=== PATIENT | female | born 1940 | race Caucasian/White ===

== ENCOUNTER 2017-02-28 13:45 | Inpatient (IN) | payer MEDICARE ==
[~2017-02-28] VITALS: Ht 167.6 cm; Wt 91.4 kg
--- NOTE | ~2017-02-28 | EKG ---
PATIENT: AMMON UNGER UNIT #: [id number] Ventricular Rate: 112 BPM Atrial Rate: 112 BPM P-R Interval: 196 ms QRS Duration: 68 ms Q-T Interval: 322 ms QTC Calculation(Bezet): 439 ms P Pitts: 22 degrees Calculated R Pitts: -15 degrees Calculated T Pitts: -11 degrees Diagnosis Line: Sinus tachycardia Diagnosis Line: Minimal voltage criteria for LVH, may be normal Diagnosis Line: variant Diagnosis Line: Nonspecific T wave abnormality Diagnosis Line: Abnormal ECG Diagnosis Line: No previous ECGs available Diagnosis Line: Confirmed by PEDRO OSCAR MD ([id number]) on Diagnosis Line: 02/28/2017 11:17:37 PM INTERPRETING MD: DAYNE ACEVEDO
--- NOTE | ~2017-02-28 | HP ---
Unit #: [id number] #: [id number] Patient: AMMON UNGER [id number] [facility] [address] [place], [place] [address] [id number] MR#: [id number] NAME: AMMON UNGER. ROOM: 10323 Age: 76 Sex: F Admission Date: 02/28/2017 : 1940 Attending Physician: Naa Graff M.D. Primary Care Physician: Dominguez Acosta M.D. HISTORY AND PHYSICAL CHIEF COMPLAINT Dehydration, nausea, vomiting, UTI. HISTORY OF PRESENT ILLNESS The patient is a 76-year-old female with a past medical history of atrial flutter, cerebrovascular accident, hypertension, hyperlipidemia, urinary incontinence who presented to the emergency department for evaluation of the above. The patient states that she has not been feeling well since 02/24/2017. She has been feeling increasingly generally weak. She has had nausea and vomiting. She reports lower abdominal pain that she describes as "crampy." She denies any urinary symptoms. She is continent at baseline. She states that the symptoms are similarly to when she has had a urinary tract infection in the past. Of note, the patient states that she has required treatment with Invanz in the past due to multidrug resistance urinary tract infection. The patient also complains of chest pain. She states that it has been going on for several weeks. It is in the mid chest. It is intermittent in nature. She states that she had a stress test more than five years ago. She has never had a cardiac catheterization. In the emergency department initial pulse and blood pressure was 73 and 128/87 respectively. Temperature is 98.7. Urinalysis shows findings concerning for urinary tract infection. EKG shows what appears to be ST depression in leads V4 and 5. I do not see an old EKG for comparison. Initial cardiac enzymes are negative. She was given 500 mL of normal saline in the emergency department, as well as 4 mg of Zofran, Invanz 40 mEq of potassium, aspirin in the emergency department. She is being admitted to [facility] for evaluation and further treatment. PAST MEDICAL HISTORY 1. Admission to [facility] in 03/2016 for what sounds like multidrug resistant urinary tract infection and sepsis. She was discharged home with a PICC line on Invanz (no records). 2. 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 3. Hypertension. 4. Hyperlipidemia. 5. Cerebrovascular accident with no residual deficits. 6. Urinary incontinence. Unit #: [id number] #: [id number] Patient: AMMON UNGER PAST SURGICAL HISTORY 1. Hysterectomy. 2. Cholecystectomy. 3. Bladder surgery. SOCIAL HISTORY The patient lives with her . There is no tobacco or alcohol use. She has a cane. FAMILY HISTORY Notable for her mother having cancer. Her dad of a myocardial infarction at the age of 62. ALLERGIES Penicillin, erythromycin. HOME MEDICATIONS This is not currently a med rec on the chart. Home medications will need to be reviewed and verified. REVIEW OF SYSTEMS A complete review of systems is negative except as indicated in the HPI. PHYSICAL EXAMINATION VITAL SIGNS: Temperature is 98.5, pulse 73, respirations 18, blood pressure 128/87, oxygen saturation 100% on room air. GENERAL: The patient is a female who is awake and alert in no acute distress. HEENT: Head is atraumatic. Mucous membranes are dry. NECK: Supple. Trachea is midline. CARDIOVASCULAR: Regular rate and rhythm. LUNGS: Clear to auscultation bilaterally with no increased work of breathing. ABDOMEN: Soft. She is mildly tender to palpation in the suprapubic area. Bowel sounds are present in all four quadrants. EXTREMITIES: Nontender with no pedal edema. NEUROLOGIC: The patient is awake and alert. She follows commands. PSYCH: The patient is somewhat anxious. She is cooperative. SKIN: Skin of examined areas is warm and dry. DIAGNOSTIC STUDIES CARDIOLOGY STUDIES: EKG shows sinus tachycardia with a rate of [address] depression in leads V4 and V5. There is no old EKG for comparison. IMAGING STUDIES: Chest x-ray shows no acute abnormality. LABORATORY STUDIES: Lipase is 20. Comprehensive metabolic panel notable for potassium of 2.8, chloride is 98. Urinalysis notable for 3+ leukocyte esterase, 2+ protein, 1+ ketones, 1+ blood, 10-25 red blood cells, enumerable white blood cells, 4+ bacteria. INR is 1.1. Complete blood count is essentially normal. Troponin was less than 0.05. ASSESSMENT The patient is a 76-year-old female with: 1. General weakness. 2. Urinary tract infection. There are no urine cultures in [facility] for review. The patient has a history of possibly ESBL urinary tract Unit #: [id number] #: [id number] Patient: AMMON UNGER infection. She has required treatment with Invanz in the past. 3. Chest pain. The patient states that she had a stress test more than five years ago. She has never had a cardiac catheterization. EKG today shows nonspecific ST changes. Initial cardiac enzymes are negative. She received aspirin in the emergency department. 4. History of atrial flutter not on chronic anticoagulation. 5. History of cerebrovascular accident. 6. Hypokalemia with a potassium of 2.8. The patient received 40 mEq of potassium in the emergency department. 7. Hypertension. 8. Hyperlipidemia. 9. Urinary incontinence. PLAN 1. Admit for observation to an intermediate level. 2. Advance to clear liquids as tolerated. 3. NPO after midnight for possible stress test. 4. Bedrest. 5. Fall precautions. 6. PT and OT to evaluate and treat. 7. Blood cultures x2. 8. Urine culture and sensitivity on urine in the lab. 9. Invanz with pharmacy to dose. 10. Get records from [facility] including urine culture. 11. Fasting lipid panel. 12. Serial cardiac enzymes. 13. Consult Dr. Morales regarding chest pain. 14. Check magnesium level. 15. Normal saline at 75 mL an hour. 16. P.r.n. Zofran. 17. Repeat labs in the morning including magnesium. 18. SCD for DVT prophylaxis. 19. Additional workup and consultants based on above. Dictated by Naa Graff M.D. MEAGAN/sherrill TD: 02/28/2017 19:01 JOB #: [id number] HISTORY AND PHYSICAL Page 1 of 1 X Naa Graff MD X HISTORY AND PHYSICAL
--- NOTE | ~2017-02-28 | CO ---
Unit #: [id number] #: [id number] Patient: AMMON UNGER [id number] [address] [address] [id number] I MR#: [id number] NAME: AMMON UNGER. ROOM: 338 Age: 76 Sex: F Admission Date: 02/28/2017 : 1940 Attending Physician: Jr Pringle M.D. Primary Care Physician: Dominguez Acosta M.D. Consultation Date: 03/01/2017 CONSULTATION REPORT REASON FOR CONSULT Chest pain. HISTORY OF PRESENTING ILLNESS This is a 76-year-old female with a prior history of hypertension, hyperlipidemia, GERD, irregular heart rate in the past with palpitations (details unavailable at this time), CVA, vertigo, and ESBL UTI in 2015. In addition, she had a negative Lexiscan stress test in 2010 and is a reformed smoker. She presented to the ER with weakness, nausea and vomiting, ongoing for several days. She denies prior recent illness with fever or chills. She was found to be dehydrated and to have a UTI. In addition, she reported intermittent mid sternal chest pain off and on for the last three months. They are described as sharp pain in her mid sternal area lasting days. The pains occur at rest. Accompanying symptoms include shortness of air and anxiety. She denies any radiating pain or diaphoresis with that episode. An EKG in the ER shows sinus tach with nonspecific T wave abnormality. Her troponin was negative x3. PAST MEDICAL HISTORY 1. Hypertension. 2. Hyperlipidemia. 3. GERD. 4. Irregular heart rate in the past (details unavailable). 5. CVA. 6. Vertigo. 7. ESBL UTI in 2015. 8. Negative Lexiscan stress test in 2010. 9. Reformed smoker. 10. Degenerative disc disease. 11. Osteoarthritis. PAST SURGICAL HISTORY 1. Hysterectomy. 2. Cholecystectomy. 3. Bladder surgery. SOCIAL HISTORY The patient lives with her . She denies tobacco or alcohol use. She denies illicit drug use. FAMILY HISTORY Her father had an MA in his 60s. Unit #: [id number] #: [id number] Patient: AMMON UNGER ALLERGIES She is allergic to penicillin, sulfa and erythromycin. HOME MEDICATIONS 1. Hydrocodone/acetaminophen 10/325 mg, one tab p.o. twice a day as needed for pain. 2. Albuterol inhaler every four hours as needed for wheezing. 3. Albuterol MDI two puffs every four hours as needed for wheezing. 4. Tenormin 12.5 mg p.o. daily. 5. Baclofen 10 mg p.o. twice a day. 6. Donepezil 10 mg p.o. daily. 7. Furosemide 40 mg p.o. daily. 8. Hydrochlorothiazide 25 mg p.o. twice a day. 9. Imipramine 100 mg p.o. at bedtime. 10. Namenda 5 mg p.o. twice a day. 11. Multivitamins, one tab p.o. once a day. 12. Protonix 40 mg p.o. daily. 13. Meclizine 12.5 mg p.o. three times a day as needed for dizziness. 14. Ativan 0.5 mg p.o. twice a day as needed for anxiety. 15. Carafate 1 g p.o. four times a day. REVIEW OF SYSTEMS Ten point review of systems was conducted and is otherwise negative except for what was stated in HPI. PHYSICAL EXAMINATION VITAL SIGNS: Temp 97.8, heart rate 89, respiratory rate 18, blood pressure 135/91. GENERAL: This is a 76-year-old female resting in bed in no acute distress. HEENT: Head is atraumatic and normocephalic. Pupils are equal and reactive. Mucous membranes are moist. NECK: Supple. Trachea midline. Negative for JVD. LUNGS: Clear, diminished in bases. Nonlabored respirations. CARDIOVASCULAR: S1, S2. Regular rate and rhythm. No significant murmurs, rubs or gallops auscultated. ABDOMEN: Soft, nontender, nondistended. EXTREMITIES: Pulses are palpable. No pedal edema. No cyanosis. NEUROLOGIC: Alert and oriented x3. Follows all commands without difficulty. Moves all extremities equally. DIAGNOSTIC STUDIES LABORATORY: Sodium 135, potassium 2.7, chloride 98, BUN 21, creatinine 1, glucose 101, magnesium 1.6, hemoglobin 13, hematocrit 39.6, white blood cell count 8.6, platelet count 223. Point of care troponin less than 0.05 and repeat troponins less than 0.03 x2. Lipid profile - cholesterol 255, triglyceride 123, LDL 162, HDL 68. AST 22, ALT 19, alkaline phos. 69. IMAGING: Chest x-ray showed left lower lobe atelectasis. CARDIOVASCULAR: EKG showed sinus rhythm with nonspecific T wave abnormalities and a ventricular rate of 104. ASSESSMENT 1. Chest pain, atypical. Unit #: [id number] #: [id number] Patient: AMMON UNGER 2. Urinary tract infection with a history of ESBL UTI. 3. History of irregular heart rate. 4. Hypokalemia. 5. Hypertension. 6. Hyperlipidemia. PLAN 1. Lexiscan stress test. 2. Add Lipitor. 3. Add aspirin. 4. Replace potassium. 5. Check BMP in a.m. 6. Check echocardiogram. Thank you for asking us to see this patient. We appreciate the consult. Dictated by... Daisy England APRN for Scout Sinclair M.D. ALDO/blayne TD: 03/02/2017 08:04 JOB #: [id number] CONSULTATION REPORT Page 1 of 1 X X CONSULTATION REPORT
--- NOTE | ~2017-02-28 | CR72 ---
[facility] A Service of [facility] RADIOLOGY TEXT RESULTS PATIENT: AMMON UNGER LOCATION: [facility] 338- : 40 UNIT #: [id number] AGE: [address]: Naa Graff MD SEX: F ORDER DR: [id number] [facility] [address] [facility]. [place], [place] [address] [id number] I MR#: [id number] Acc #: [id number] NAME: AMMON UNGER : 1940 SEX: F STUDY DATE/TIME: 02/28/2017 14:50 UNIT: [address] ROOM: [facility] STUDY DESCRIPTION: CR Chest Single View Portable Attending Physician: Naa Graff M.D. Ordering Physician: Abraham Sanchez D.O. Primary Care Physician: Dominguez Acosta M.D. MEDICAL IMAGING REPORT This report is preliminary unless electronic signature is present EXAM Portable chest HISTORY Dehydration, nausea, vomiting, weakness onset today. COMPARISON None. FINDINGS Portable view of the chest demonstrates lingular and left lower lobe atelectasis. Air-filled middle mediastinal density compatible with hiatal hernia. No dense airspace disease or consolidation. No effusions. Mild aortic atherosclerotic changes. No pneumothorax. Dictated by... Juventino Acosta M.D. THIS IS AN ELECTRONICALLY VERIFIED REPORT Juventino Acosta M.D. at 03/01/2017 7:15 AM GIOVANNA/germaine TD: 03/01/2017 00:31 JOB #: [id number] MEDICAL IMAGING REPORT Page 1 of 1 COPY
--- NOTE | ~2017-02-28 | TH ---
Unit #: [id number] #: [id number] Patient: AMMON UNGER [id number] [address] [address] [id number] MR#: [id number] NAME: AMMON UNGER : 1940 SEX: F STUDY DATE/TIME: 03/01/2017 UNIT: [id number] U ROOM: [address] [place] [address] DESCRIPTION: Nuclear stress Attending Physician: Jr Pringle M.D. Primary Care Physician: Dominguez Acosta M.D. CARDIOLOGY REPORT INDICATION Chest discomfort. SUMMARY The patient underwent nuclear stress test. Only rest images were able to be obtained. Patient was unable to complete the whole study due to nausea and claustrophobia. Patient received a resting dose of 9.2 mCi. There is no gated imaging available. On rest only images patient does not appear to have any infarction present. CONCLUSION 1. No infarction available as uniform uptake seen. Though this information is limited as gating films are not available. 2. Inconclusive test. Would recommend completion of the study, stress portion. 3. 1. Dictated by... Kalani Mohamud M.D. [place]/sherrill TD: 03/02/2017 05:57 JOB #: [id number] Unit #: [id number] #: [id number] Patient: AMMON UNGER CARDIOLOGY REPORT Page 1 of 1 X KALANI MOHAMUD MD CARDIOLOGY REPORT
[2017-02-28 15:42] LABS: POC - CKMB 1.2 ng/mL (0.0-7.9); POC - TROPONIN <0.05 ng/mL (<=0.05)
[2017-02-28 16:00] LABS: BASOPHIL% 0.4 % (0-2.5); EOSINOPHIL# 0.2 X10e3 (0-0.7); EOSINOPHIL% 2.2 % (0.0-7.0); HEMATOCRIT 44.4 % (35.0-45.0); HEMOGLOBIN 14.7 gm/dL (12.0-16.0); LYMPHOCYTE# 2.7 X10e3 (1.0-3.5); LYMPHOCYTE% 26.4 % (17.0-45.0); MEAN CELL VOLUME 83.9 FL (83-96); MEAN CORPUSCULAR HEMOGLOBIN 27.7 PG (28-34); MEAN CORPUSCULAR HGB CONC 33.1 g/dL (30-36); MEAN PLATELET VOLUME 9.5 FL (6.5-11.5); MONOCYTE# 0.8 X10e3 (0-1.0); MONOCYTE% 7.4 % (3.0-12.0); NEUTROPHIL# 6.5 X10e3 (1.5-7.1); NEUTROPHIL% 63.6 % (40-75); PLATELET COUNT 292 X10e3 (140-420); RED BLOOD COUNT 5.29 X10e (3.90-5.30); RED CELL DISTRIBUTION WIDTH 14.7 % (11.0-15.5); WHITE BLOOD COUNT 10.3 X10e3 (4.0-10.5)
[2017-02-28 16:01] LABS: DIFF IND NO
[2017-02-28 16:12] LABS: URINE SOURCE CLEAN CATCH
[2017-02-28 16:13] LABS: INR 1.1; PARTIAL THROMBOPLASTIN TIME 25.2 SECONDS (23.5-31.3); PROTHROMBIN TIME (PATIENT) 11.4 SECONDS (10.0-11.7)
[2017-02-28 16:17] LABS: URINE APPEARANCE TURBID; URINE BLOOD 1+ (NEG); URINE COLOR DK YELLOW; URINE GLUCOSE NEG (NEG); URINE KETONE 1+ (NEG); URINE LEUKOCYTE ESTERASE 3+ (NEG); URINE NITRATE NEG (NEG); URINE PROTEIN 2+ (NEG); URINE SPECIFIC GRAVITY 1.027 (1.003-1.035)
[2017-02-28 16:19] LABS: CULTURE INDICATED? YES; U HYALINE CASTS AUWI 0-2 /[LPF]; URINE BACTERIA AUWI 4+ (NEGATIVE); URINE SQUAMOUS EPITHELIAL CELL OCC /[HPF]; UWBCS1 AUWI INNUM (0-5)
[2017-02-28 16:57] LABS: URINE BILIRUBIN NEG (NEG)
[2017-02-28 17:25] LABS: ALBUMIN SERUM 4.3 g/dL (3.5-5.0); BILIRUBIN, DIRECT 0.2 mg/dL (0.0-0.2); BILIRUBIN,INDIRECT 1.2 mg/dL (0.0-0.9); BILIRUBIN,TOTAL 1.4 mg/dL (0.2-2.0); CALCIUM SERUM 10.2 mg/dL (8.4-10.2); GLOM FILT RATE Estimated 54.7 mL/min (>60); PROTEIN TOTAL SERUM 7.9 g/dL (6.0-8.3)
[2017-02-28 17:28] LABS: POTASSIUM 2.8 mmol/L (3.5-5.1)
[2017-02-28] MEDS ORDERED: ALBUTEROL17 GM INH (17:43)
[2017-02-28] MEDS ORDERED: HYDROCODON-ACE1 EAC5 PO (17:43)
[2017-02-28] MEDS ORDERED: ALBUTEROL2.5 MG/3 M INH (17:43)
[2017-02-28] MEDS ORDERED: TENORMIN25 M1 PO (17:44)
[2017-02-28] MEDS ORDERED: DONEPEZIL HCL10 MG PO (17:46)
[2017-02-28] MEDS ORDERED: LIORESAL10 MG PO (17:46)
[2017-02-28] MEDS ORDERED: FUROSEMIDE40 MG PO (17:47)
[2017-02-28] MEDS ORDERED: HYDROCHLOROTHIA25 MG PO (17:48)
[2017-02-28] MEDS ORDERED: NAMENDA5 MG PO (17:49)
[2017-02-28] MEDS ORDERED: IMIPRAMINE HCL50 M1 PO (17:49)
[2017-02-28] MEDS ORDERED: MULTIVITAMINS1 EAC3 PO (17:49)
[2017-02-28] MEDS ORDERED: PROTONIX (17:51)
[2017-02-28 19:10] LABS: MAGNESIUM 1.8 mg/dL (1.6-3.0)
[2017-02-28 19:18] LABS: POC - CKMB <1.0 ng/mL (0.0-7.9); POC - TROPONIN <0.05 ng/mL (<=0.05)
[2017-02-28 23:35] LABS: %MB 1.7 % (0.0-4.0); MB 1.1 ng/ml
[2017-03-01] MEDS ORDERED: MECLIZINE HCL12.5 M2 PO (00:49)
[2017-03-01] MEDS ORDERED: ATIVAN0.5 MG PO (00:50)
[2017-03-01] MEDS ORDERED: CARAFATE1 GM PO (01:09)
[2017-03-01 05:26] LABS: BASOPHIL% 0.5 % (0-2.5); EOSINOPHIL# 0.7 X10e3 (0-0.7); HEMATOCRIT 39.6 % (35.0-45.0); LYMPHOCYTE# 2.1 X10e3 (1.0-3.5); LYMPHOCYTE% 24.6 % (17.0-45.0); MEAN CELL VOLUME 84.3 FL (83-96); MEAN CORPUSCULAR HEMOGLOBIN 27.6 PG (28-34); MEAN CORPUSCULAR HGB CONC 32.8 g/dL (30-36); MEAN PLATELET VOLUME 8.4 FL (6.5-11.5); MONOCYTE# 0.8 X10e3 (0-1.0); MONOCYTE% 8.9 % (3.0-12.0); PLATELET COUNT 223 X10e3 (140-420); RED BLOOD COUNT 4.69 X10e (3.90-5.30); RED CELL DISTRIBUTION WIDTH 14.8 % (11.0-15.5); WHITE BLOOD COUNT 8.6 X10e3 (4.0-10.5)
[2017-03-01 05:35] LABS: DIFF IND NO
[2017-03-01 05:54] LABS: CK TOTAL 55 IU/L (26-140)
[2017-03-01 06:15] LABS: ALBUMIN SERUM 3.9 g/dL (3.5-5.0); BILIRUBIN,TOTAL 0.9 mg/dL (0.2-2.0); CALCIUM SERUM 9.8 mg/dL (8.4-10.2); GLOM FILT RATE Estimated 54.7 mL/min (>60); MAGNESIUM 1.6 mg/dL (1.6-3.0)
[2017-03-01 06:20] LABS: POTASSIUM 2.7 mmol/L (3.5-5.1)
[2017-03-02 12:55] LABS: BUN/CREATININE RATIO 13.75; CALCIUM SERUM 9.3 mg/dL (8.4-10.2); CREATININE SERUM 0.8 mg/dL (0.6-1.4); GLOM FILT RATE Estimated 71.7 mL/min (>60); POTASSIUM 3.5 mmol/L (3.5-5.1)
[2017-03-02 16:54] LABS: URINE APPEARANCE CLEAR; URINE BILIRUBIN NEG (NEG); URINE BLOOD NEG (NEG); URINE COLOR YELLOW; URINE GLUCOSE NEG (NEG); URINE KETONE NEG (NEG); URINE LEUKOCYTE ESTERASE 2+ (NEG); URINE NITRATE NEG (NEG); URINE PROTEIN NEG (NEG); URINE SPECIFIC GRAVITY 1.017 (1.003-1.035); URINE UROBILINOGEN 0.2 MG/DL (NEG)
[2017-03-02 16:59] LABS: URBCS1 AUWI 0-2 /[HPF] (0-2); URINE BACTERIA AUWI NEG (NEGATIVE); URINE SQUAMOUS EPITHELIAL CELL OCC /[HPF]
[2017-03-03 05:51] LABS: BUN/CREATININE RATIO 15.71; CALCIUM SERUM 9.1 mg/dL (8.4-10.2); CREATININE SERUM 0.7 mg/dL (0.6-1.4); GLOM FILT RATE Estimated 84.2 mL/min (>60); MAGNESIUM 1.8 mg/dL (1.6-3.0); POTASSIUM 3.5 mmol/L (3.5-5.1)
[2017-03-03 19:51] LABS: BUN/CREATININE RATIO 13.33; CALCIUM SERUM 9.1 mg/dL (8.4-10.2); CREATININE SERUM 0.9 mg/dL (0.6-1.4); GLOM FILT RATE Estimated 62.2 mL/min (>60); POTASSIUM 4.2 mmol/L (3.5-5.1)
[2017-03-04 06:03] LABS: CALCIUM SERUM 9.4 mg/dL (8.4-10.2); CREATININE SERUM 0.8 mg/dL (0.6-1.4); GLOM FILT RATE Estimated 71.7 mL/min (>60); MAGNESIUM 1.8 mg/dL (1.6-3.0); POTASSIUM 4.1 mmol/L (3.5-5.1)
[2017-03-04] MEDS ORDERED: ASPIRIN81 M2 PO (14:56)
[2017-03-04] MEDS ORDERED: LIPITOR40 MG PO (14:57)
[2017-03-04] MEDS ORDERED: GABAPENTIN300 MG PO (14:57)
[2017-03-04] MEDS ORDERED: ALDACTONE25 MG PO (14:58)
== END 2017-03-04 16:12 | disposition home health service (06) | DRG 641 ==
LOC: CED 13:45 → CEDOF 18:10 → C3A PCU 18:10 → CED 18:10 → C3A PCU 18:10 → CED 18:31 → CEDOF 18:31 → C3A PCU 03-01 00:04 → CEDOF 03-02 11:45 → C3A PCU 03-04 16:12
PROVIDERS: Emergency Medicine; Family Medicine; Internal Medicine
PROC: B24BZZZ Ultrasonography of Heart with Aorta (ICD-10-PCS; principal; 2017-03-02)
DX: E87.6 Hypokalemia (principal); E86.0 Dehydration; I10 Essential (primary) hypertension; R07.89 Other chest pain; E78.5 Hyperlipidemia, unspecified; K21.9 Gastro-esophageal reflux disease without esophagitis; G89.29 Other chronic pain; M54.9 Dorsalgia, unspecified; Z87.891 Personal history of nicotine dependence; Z86.73 Personal history of transient ischemic attack (TIA), and cerebral infarction without residual deficits; Z16.12 Extended spectrum beta lactamase (ESBL) resistance; R32 Unspecified urinary incontinence; Z90.49 Acquired absence of other specified parts of digestive tract; Z90.710 Acquired absence of both cervix and uterus; Z88.1 Allergy status to other antibiotic agents; Z88.2 Allergy status to sulfonamides; Z88.0 Allergy status to penicillin; F41.9 Anxiety disorder, unspecified; Z80.9 Family history of malignant neoplasm, unspecified; Z82.49 Family history of ischemic heart disease and other diseases of the circulatory system
CPT/HCPCS: 36415; 71010; 78451; 80048; 80053; 80061; 80076; 81003; 82550; 82553; 82947; 83690; 83735; 84132; 84484; 85025; 85610; 85730; 87040; 87086; 87088; 87186; 93005; 93306; 94640; 94760; 96361; 96374; 97161; 99285; A9500; G8978-GP; G8979-GP; G8980-GP; J1335; J2405; J3475